=== PATIENT | male | born 1980 | race Asian ===

== ENCOUNTER 2021-12-30 13:27 | Outpatient (CLI) | payer BC, OTHER | END 2021-12-30 23:59 | disposition home or self-care (01) | LOC: LAB 13:27 | PROVIDERS: ATTEND Family Medicine | DX: E78.2 Mixed hyperlipidemia (principal) | CPT/HCPCS: 36415 ==

== ENCOUNTER 2022-02-03 07:00 | Outpatient (CLI) | payer BC, OTHER | END 2022-02-03 23:59 | disposition home or self-care (01) | LOC: LAB 07:00 | PROVIDERS: ATTEND Family Medicine | DX: E78.2 Mixed hyperlipidemia (principal); Z79.899 Other long term (current) drug therapy | CPT/HCPCS: 36415 ==

== ENCOUNTER 2022-07-15 11:49 | Outpatient (CLI) | payer BC, OTHER ==
[2022-07-15 12:15] LABS: HEMATOCRIT 42.4 % (36.7-47.1); MEAN CORPUSCULAR HEMOGLOBIN 30.1 uug (23.8-33.4); MEAN CORPUSCULAR VOLUME 87.9 fL (73.0-96.2); PLATELET COUNT (AUTO) 266 K/uL (152-348)
[2022-07-15 13:05] LABS: BILIRUBIN,TOTAL 0.4 mg/dL (0.2-1.0); CREATININE 1.1 mg/dL (0.6-1.3); POTASSIUM 3.9 mmol/L (3.5-5.1); TOTAL PROTEIN, SERUM 8.1 g/dL (6.4-8.2)
[2022-07-15 15:00] LABS: THYROID STIMULATING HORMONE 0.861 mIU/mL (0.358-3.740)
[2022-07-16 08:06] LABS: TRIIODOTHYRONINE, FREE 3.7 pg/mL (2.0-4.4)
== END 2022-07-15 23:59 | disposition home or self-care (01) ==
LOC: LAB 11:49
PROVIDERS: ATTEND Family Medicine
DX: E78.2 Mixed hyperlipidemia (principal); E55.9 Vitamin D deficiency, unspecified; Z79.899 Other long term (current) drug therapy
CPT/HCPCS: 36415; 82306; 82746; 83550; 84443; 84481; 85025